=== PATIENT | male | born 1985 | race Caucasian/White ===

== ENCOUNTER 2017-02-28 21:55 | Emergency (ER) | payer OTHER ==
[~2017-02-28] VITALS: Ht 180.3 cm; Wt 176.9 kg
[2017-02-28] MEDS ORDERED: ACETAMINOPHEN 325 MG TABLET PO ONE (23:00)
[2017-02-28] MEDS ORDERED: IBUPROFEN 200 MG TABLET PO ONE (23:00)
[2017-02-28] MEDS ORDERED: DEXAMETHASONE 4 MG/ML, 1ML PO ONE (23:00)
[2017-02-28] MEDS ORDERED: AMOXICILLIN/CLAV 875-125MG TABLET PO ONE (23:00)
[2017-02-28] MEDS ORDERED: IBUPROFEN 200 MG TABLET ONE (23:23)
[2017-02-28] MEDS ORDERED: ACETAMINOPHEN 325 MG TABLET ONE (23:23)
[2017-02-28] MEDS ORDERED: DEXAMETHASONE 4 MG TABLET ONE (23:23)
[2017-03-01 01:14] VITALS: BP 143/87
== END 2017-03-01 01:16 | disposition home or self-care (01) ==
LOC: ED 23:59
DX: J02.9 Acute pharyngitis, unspecified (principal); R50.9 Fever, unspecified; H92.01 Otalgia, right ear; I10 Essential (primary) hypertension
CPT/HCPCS: 99284; J1100